=== PATIENT | female | born 1945 | race Caucasian/White ===

== ENCOUNTER 2020-03-24 13:48 | Inpatient (IN) ==
[2020-03-24] MEDS ORDERED: 0.9 % Sodium Chloride 1,000 ML IVC ONE ×2 (14:06→15:03)
[2020-03-24] MEDS ORDERED: *HR* Promethazine 25 MG/ML VIAL IVP ONE ×2 (14:06→20:33)
[2020-03-24 14:29] LABS: INR 1.2; Prothrombin Time 13.3 Seconds (9.4-12.1)
[2020-03-24 14:31] LABS: Activated Partial Thrombo Time 38.1 Seconds (26.0-36.0)
[2020-03-24 14:58] LABS: Basophils % 0.4 %; Eosinophils % 0.2 %; Hematocrit 48.9 % (35.3-44.9); Hemoglobin 16.1 g/dL (11.5-15.4); Immature Granulocytes % 0.5 % (0-4); Lymphocytes # 0.8 K/mcL (0.6-4.6); Lymphocytes % 6.9 %; Mean Corpuscular HGB Conc 32.9 g/dL (31.6-35.5); Mean Corpuscular Hemoglobin 31.6 pg (28.0-33.3); Mean Corpuscular Volume 96.1 fL (83.0-100.0); Mean Platelet Volume 11.1 fL (9.4-12.4); Monocytes # 0.8 K/mcL (0.0-1.3); Monocytes % 6.8 %; Neutrophils # 9.5 K/mcL (1.6-8.9); Platelet Count 310 K/mcL (140-400); Red Blood Count 5.09 M/mcL (3.82-4.97); Red Cell Distribution Width 13.2 % (11.5-14.5); Segmented Neutrophils % 85.2 %; White Blood Count 11.1 K/mcL (4.3-11.1)
[2020-03-24 15:01] LABS: Procalcitonin 0.1 ng/mL (0.00-0.15)
[2020-03-24 15:02] LABS: Alanine Aminotransferase 15 Units/L (7-52); Albumin 4.5 g/dL (3.5-5.7); Albumin/Globulin Ratio 1.2 (1.1-2.2); Alkaline Phosphatase 88 Units/L (34-104); Aspartate Amino Transferase 19 Units/L (13-39); BUN/Creatinine Ratio 15 (6-26); Bilirubin,Direct 0.2 mg/dL (0.0-0.2); Bilirubin,Indirect 0.5 mg/dL (0.0-1.0); Bilirubin,Total 0.7 mg/dL (0.3-1.0); Blood Urea Nitrogen 31 mg/dL (8-23); Calcium 10.7 mg/dL (8.6-10.3); Carbon Dioxide 26 mEq/L (23-29); Chloride 94 mEq/L (98-107); Globulin 3.7 g/dL (2.4-3.5); Glucose 173 mg/dL (70-105); Lipase 176 Units/L (11-82); Osmolality,Calculated 281 (280-300); Sodium 130 mEq/L (136-145); Total Protein 8.2 g/dL (6.4-8.9); Troponin I < 0.03 ng/mL (< 0.04); eGFR For African Americans 28 (> 60); eGFR For Non-African Americans 23 (> 60)
[2020-03-24 15:13] LABS: Bilirubin,Urine Negative (Negative); Blood,Urine Negative (Negative); Clarity,Urine Clear (Clear); Color,Urine Light-Yellow (Yellow); Glucose,Urine (UA) 50 mg/dL (Normal); Hyaline Casts,Urine Few per lpf (None Seen); Ketones,Urine Negative (Negative); Leukocyte Esterase,Urine Negative (Negative); Mucus,Urine Few per lpf (None-Few); Nitrite,Urine Negative (Negative); Protein,Urine 30 mg/dL (Neg-Trace); RBC,Urine 0-3 per hpf (0-3); Specific Gravity,Urine 1.017 (1.010-1.025); Squamous Epithelial Cell,Urine Few per hpf (None-Few); Urobilinogen,Urine Normal (Normal); WBC,Urine 0-3 per hpf (0-3)
[2020-03-24] MEDS ORDERED: Morphine Sulfate 2 MG/ML SYRINGE IVP STA ×3 (15:42→17:28)
[2020-03-24] MEDS ORDERED: Docusate Oral Soln 100 MG/10 ML UDC PO PRN (17:39)
[2020-03-24] MEDS ORDERED: Naloxone 0.4 MG/ML INJ IVP PRN (17:40)
[2020-03-24 18:16] LABS: Thyroid Stimulating Hormone 1.203 mcIU/mL (0.340-5.600)
[2020-03-24] MEDS ORDERED: Morphine Sulfate 2 MG/ML SYRINGE IVP PRN (18:38)
[2020-03-24] MEDS ORDERED: Acetaminophen 325 MG TABLET PO PRN (18:38)
[2020-03-24] MEDS ORDERED: *HR* HYDROcodone/Acet 5/325 mg TABLET PO PRN (18:39)
[2020-03-24] MEDS: Metoclopramide 10 MG/2 ML VIAL IVP SCH ×2 (19:00→23:38)
[2020-03-24] MEDS: Insulin LISPRO 300 UNITS/3 ML VIAL SQ SCH (20:09)
[2020-03-24] MEDS: Metoprolol 100 MG TABLET PO SCH (20:13)
[2020-03-25] MEDS ORDERED: *HR* Promethazine 25 MG/ML VIAL IVP ONE (02:38)
[2020-03-25 02:48] LABS: Basophils % 0.2 %; Hematocrit 47.2 % (35.3-44.9); Hemoglobin 15.5 g/dL (11.5-15.4); Immature Granulocytes % 0.4 % (0-4); Lymphocytes # 0.5 K/mcL (0.6-4.6); Mean Corpuscular HGB Conc 32.8 g/dL (31.6-35.5); Mean Corpuscular Hemoglobin 31.4 pg (28.0-33.3); Mean Corpuscular Volume 95.5 fL (83.0-100.0); Mean Platelet Volume 10.5 fL (9.4-12.4); Monocytes # 0.3 K/mcL (0.0-1.3); Monocytes % 2.3 %; Platelet Count 253 K/mcL (140-400); Red Blood Count 4.94 M/mcL (3.82-4.97); Red Cell Distribution Width 13.1 % (11.5-14.5); Segmented Neutrophils % 93.1 %; White Blood Count 12.9 K/mcL (4.3-11.1)
[2020-03-25 03:07] LABS: Calcium 10.2 mg/dL (8.6-10.3); Potassium 4.8 mEq/L (3.5-5.1)
[2020-03-25] MEDS: Metoclopramide 10 MG/2 ML VIAL IVP SCH ×4 (05:13→23:51)
[2020-03-25 08:47] LABS: Estimated Average Glucose 146 mg/dl
[2020-03-25] MEDS ORDERED: *HR* Rivaroxaban 10 MG TABLET PO SCH (09:00)
[2020-03-25] MEDS: Insulin LISPRO 300 UNITS/3 ML VIAL SQ SCH ×4 (09:13→21:35)
[2020-03-25] MEDS: *HR* Amiodarone 200 MG TABLET PO SCH (09:42)
[2020-03-25] MEDS: Cholecalciferol (D-3) 1,000 UNIT (25MCG) TABLET PO SCH (09:42)
[2020-03-25] MEDS: DilTIAZem CD (24hr) 120 MG CAP.ER.24H PO SCH (09:42)
[2020-03-25] MEDS: Fenofibrate 54 MG TABLET PO SCH (09:42)
[2020-03-25] MEDS: Metoprolol 100 MG TABLET PO SCH ×3 (09:42→19:57)
[2020-03-25] MEDS: Famotidine 20 MG TABLET PO SCH (09:42)
[2020-03-25] MEDS: *HR* Promethazine 25 MG/ML VIAL IVP PRN ×2 (09:59→20:05)
[2020-03-25] MEDS: Ringers Solution, Lactated 1,000 ML IVC SCH ×3 (11:33→23:51)
[2020-03-25 13:17] LABS: Chol/HDL Ratio 5.1 (0-4.9)
[2020-03-25] MEDS ORDERED: *HR* Propofol 200 MG/20 ML VIAL IVP ONE (14:07)
[2020-03-25] MEDS ORDERED: Lidocaine -MPF 2% 2 ML VIAL ONE (14:07)
[2020-03-25] MEDS ORDERED: *HR* Metoprolol 5 MG/5 ML VIAL IVP ONE (14:48)
[2020-03-25] MEDS: *HR* Heparin 5,000 UNIT/ML VIAL SQ SCH ×2 (18:27→20:00)
[2020-03-25] MEDS ORDERED: *HR* Labetalol 20 MG/4 ML SYRINGE IVP PRN (21:31)
[2020-03-26 04:27] LABS: Basophils % 0.1 %; Hematocrit 43.2 % (35.3-44.9); Hemoglobin 14.8 g/dL (11.5-15.4); Immature Granulocytes % 0.4 % (0-4); Lymphocytes # 0.8 K/mcL (0.6-4.6); Lymphocytes % 5.3 %; Mean Corpuscular HGB Conc 34.3 g/dL (31.6-35.5); Mean Corpuscular Hemoglobin 32.2 pg (28.0-33.3); Mean Corpuscular Volume 94.1 fL (83.0-100.0); Mean Platelet Volume 10.5 fL (9.4-12.4); Monocytes # 1.3 K/mcL (0.0-1.3); Monocytes % 9.1 %; Neutrophils # 12.3 K/mcL (1.6-8.9); Platelet Count 225 K/mcL (140-400); Red Blood Count 4.59 M/mcL (3.82-4.97); Red Cell Distribution Width 12.9 % (11.5-14.5); Segmented Neutrophils % 85.1 %; White Blood Count 14.5 K/mcL (4.3-11.1)
[2020-03-26 04:57] LABS: Albumin/Globulin Ratio 1.4 (1.1-2.2); Bilirubin,Direct 0.3 mg/dL (0.0-0.2); Bilirubin,Indirect 0.8 mg/dL (0.0-1.0); Bilirubin,Total 1.1 mg/dL (0.3-1.0); Calcium 10.1 mg/dL (8.6-10.3); Globulin 2.9 g/dL (2.4-3.5); Potassium 3.8 mEq/L (3.5-5.1); Total Protein 6.9 g/dL (6.4-8.9)
[2020-03-26] MEDS: Metoclopramide 10 MG/2 ML VIAL IVP SCH ×3 (05:34→17:05)
[2020-03-26] MEDS: *HR* Heparin 5,000 UNIT/ML VIAL SQ SCH ×3 (05:34→21:21)
[2020-03-26] MEDS: Ringers Solution, Lactated 1,000 ML IVC SCH ×5 (05:35→22:01)
[2020-03-26] MEDS: Metoprolol 100 MG TABLET PO SCH ×3 (08:06→20:17)
[2020-03-26] MEDS: Fenofibrate 54 MG TABLET PO SCH (08:06)
[2020-03-26] MEDS: Famotidine 20 MG TABLET PO SCH (08:06)
[2020-03-26] MEDS: DilTIAZem CD (24hr) 120 MG CAP.ER.24H PO SCH (08:06)
[2020-03-26] MEDS: Cholecalciferol (D-3) 1,000 UNIT (25MCG) TABLET PO SCH (08:06)
[2020-03-26] MEDS: *HR* Amiodarone 200 MG TABLET PO SCH (08:06)
[2020-03-26] MEDS: Insulin LISPRO 300 UNITS/3 ML VIAL SQ SCH ×4 (08:07→20:22)
[2020-03-27] MEDS: Metoclopramide 10 MG/2 ML VIAL IVP SCH ×5 (01:01→23:32)
[2020-03-27] MEDS: Ringers Solution, Lactated 1,000 ML IVC SCH ×4 (03:16→16:25)
[2020-03-27] MEDS: *HR* Heparin 5,000 UNIT/ML VIAL SQ SCH ×3 (05:41→22:17)
[2020-03-27 06:13] LABS: Basophils % 0.2 %; Eosinophils # 0.1 K/mcL (0.0-0.6); Eosinophils % 0.5 %; Hematocrit 41.5 % (35.3-44.9); Hemoglobin 14.3 g/dL (11.5-15.4); Immature Granulocytes % 0.3 % (0-4); Lymphocytes # 1.1 K/mcL (0.6-4.6); Lymphocytes % 10.9 %; Mean Corpuscular HGB Conc 34.5 g/dL (31.6-35.5); Mean Corpuscular Hemoglobin 32.4 pg (28.0-33.3); Mean Corpuscular Volume 93.9 fL (83.0-100.0); Mean Platelet Volume 11.3 fL (9.4-12.4); Monocytes # 1.1 K/mcL (0.0-1.3); Monocytes % 10.7 %; Platelet Count 208 K/mcL (140-400); Red Blood Count 4.42 M/mcL (3.82-4.97); Red Cell Distribution Width 12.7 % (11.5-14.5); Segmented Neutrophils % 77.4 %; White Blood Count 10.3 K/mcL (4.3-11.1)
[2020-03-27 06:37] LABS: Calcium 9.9 mg/dL (8.6-10.3); Potassium 3.7 mEq/L (3.5-5.1)
[2020-03-27] MEDS ORDERED: Ondansetron 4 MG/2 ML VIAL IVP ONE (08:13)
[2020-03-27] MEDS ORDERED: *HR* FentaNYL (PF) 100 MCG/2 ML VIAL IVP PRN ×2 (08:13→10:58)
[2020-03-27] MEDS ORDERED: *HR* OxyCODONE Immed Rel 5 MG TABLET PO PRN ×2 (08:13→10:58)
[2020-03-27] MEDS ORDERED: Isovue-300 50ML VIAL ONE (08:21)
[2020-03-27] MEDS ORDERED: *HR* Promethazine 25 MG/ML VIAL IVP PRN ×3 (08:23→10:58)
[2020-03-27] MEDS ORDERED: *HR* Propofol 200 MG/20 ML VIAL IVP ONE (08:23)
[2020-03-27] MEDS: *HR* Amiodarone 200 MG TABLET PO SCH (08:25)
[2020-03-27] MEDS: DilTIAZem CD (24hr) 120 MG CAP.ER.24H PO SCH (08:25)
[2020-03-27] MEDS: Metoprolol 100 MG TABLET PO SCH ×3 (08:25→22:18)
[2020-03-27] MEDS ORDERED: CeFAZolin 2 GM/120 ML BAG IVPB ONE (09:00)
[2020-03-27] MEDS ORDERED: Acetaminophen IV 1,000 MG/100 ML INFUS..BTL ONE (09:19)
[2020-03-27] MEDS ORDERED: Dexamethasone 4 MG/ML VIAL ONE (09:32)
[2020-03-27] MEDS ORDERED: Lidocaine -MPF 2% 2 ML VIAL ONE (09:32)
[2020-03-27] MEDS ORDERED: Lidocaine HCL 4 ML Topical Solution (Laryng-O-Jet Kit Sterile Pak) TP ONE (09:32)
[2020-03-27] MEDS ORDERED: *HR* Rocuronium Bromide 50 MG/5 ML VIAL ONE (09:32)
[2020-03-27] MEDS ORDERED: *HR* Midazolam HCl 2 MG/2 ML VIAL ONE (09:33)
[2020-03-27] MEDS ORDERED: *HR* FentaNYL (PF) 100 MCG/2 ML VIAL ONE (09:39)
[2020-03-27] MEDS ORDERED: Acetaminophen IV 1,000 MG/100 ML INFUS..BTL IVPB ONE (09:45)
[2020-03-27] MEDS: Famotidine 20 MG TABLET PO SCH (10:49)
[2020-03-27] MEDS ORDERED: Morphine Sulfate 2 MG/ML SYRINGE IVP PRN (10:58)
[2020-03-27] MEDS ORDERED: Acetaminophen 325 MG TABLET PO PRN (10:58)
[2020-03-27] MEDS ORDERED: Naloxone 0.4 MG/ML INJ IVP PRN (10:58)
[2020-03-27] MEDS ORDERED: *HR* Labetalol 20 MG/4 ML SYRINGE IVP PRN (10:58)
[2020-03-27] MEDS ORDERED: Docusate Oral Soln 100 MG/10 ML UDC PO PRN (10:58)
[2020-03-27] MEDS ORDERED: *HR* HYDROcodone/Acet 5/325 mg TABLET PO PRN (10:58)
[2020-03-27] MEDS: Insulin LISPRO 300 UNITS/3 ML VIAL SQ SCH ×3 (11:45→16:41)
[2020-03-27] MEDS: Cholecalciferol (D-3) 1,000 UNIT (25MCG) TABLET PO SCH (14:21)
[2020-03-27] MEDS: Fenofibrate 54 MG TABLET PO SCH (14:21)
[2020-03-27] MEDS ORDERED: Insulin LISPRO 300 UNITS/3 ML VIAL SQ SCH (21:00)
[2020-03-28] MEDS: *HR* Heparin 5,000 UNIT/ML VIAL SQ SCH (05:28)
[2020-03-28] MEDS: Metoclopramide 10 MG/2 ML VIAL IVP SCH ×2 (05:28→12:05)
[2020-03-28] MEDS: Insulin LISPRO 300 UNITS/3 ML VIAL SQ SCH ×2 (07:44→11:58)
[2020-03-28] MEDS: Metoprolol 100 MG TABLET PO SCH (07:53)
[2020-03-28 08:29] LABS: Basophils % 0.1 %; Hematocrit 42.8 % (35.3-44.9); Hemoglobin 14.2 g/dL (11.5-15.4); Immature Granulocytes % 0.2 % (0-4); Lymphocytes # 0.5 K/mcL (0.6-4.6); Lymphocytes % 3.9 %; Mean Corpuscular HGB Conc 33.2 g/dL (31.6-35.5); Mean Corpuscular Hemoglobin 31.3 pg (28.0-33.3); Mean Corpuscular Volume 94.3 fL (83.0-100.0); Mean Platelet Volume 10.9 fL (9.4-12.4); Monocytes # 0.7 K/mcL (0.0-1.3); Monocytes % 5.3 %; Neutrophils # 11.8 K/mcL (1.6-8.9); Platelet Count 200 K/mcL (140-400); Red Blood Count 4.54 M/mcL (3.82-4.97); Red Cell Distribution Width 12.9 % (11.5-14.5); Segmented Neutrophils % 90.5 %
[2020-03-28 08:49] LABS: Albumin 3.6 g/dL (3.5-5.7); Albumin/Globulin Ratio 1.2 (1.1-2.2); Calcium 9.6 mg/dL (8.6-10.3); Potassium 4.3 mEq/L (3.5-5.1); Total Protein 6.6 g/dL (6.4-8.9)
[2020-03-28] MEDS ORDERED: DilTIAZem CD (24hr) 120 MG CAP.ER.24H PO SCH (09:00)
[2020-03-28] MEDS ORDERED: Fenofibrate 54 MG TABLET PO SCH (09:00)
[2020-03-28] MEDS ORDERED: Famotidine 20 MG TABLET PO SCH (09:00)
[2020-03-28] MEDS ORDERED: Cholecalciferol (D-3) 1,000 UNIT (25MCG) TABLET PO SCH (09:00)
[2020-03-28] MEDS ORDERED: *HR* Amiodarone 200 MG TABLET PO SCH (09:00)
[2020-03-28 11:28] VITALS: BP 136/79
[2020-03-28] MEDS ORDERED: Piperacillin/Tazobactam 3.375 GM in 0.9 % Sodium Chloride Mini Bag 100 ML IVPB SCH (16:00)
== END 2020-03-28 13:35 | disposition home or self-care (01) | DRG 418 ==
LOC: EMEROOARM 13:48 → 2ANU 13:48 → SUATTDRO 17:52 → 2ANU 18:22 → SUATTDRO 03-25 18:35
PROVIDERS: ADMIT Family Medicine; ATTEND Internal Medicine
PROC: ENDOEBX (2020-03-25 14:25)